=== PATIENT | female | born 1990 | race Caucasian/White ===

== ENCOUNTER → 2022-03-01 | Emergency (ER) | payer OTHER ==
[2022-03-01 17:55] VITALS: RESP 18; BMI 25.7
[2022-03-01 19:22] LABS: BASO % 0.3 % (0-2.0); EOS % 1.3 % (0-4.5); HEMATOCRIT 37.4 % (32.4-45.2); LYMPH % 26.1 % (8-40); MCH 32.7 pg (25.7-33.7); MCHC 34.8 g/dl (32.0-36.0); MEAN PLT VOLUME 8.1 fl (7.5-11.1); MONO % 8.9 % (3.8-10.2); NEUT % 63.4 % (42.8-82.8); PLATELET COUNT 281 10^3/uL (134-434); RBC 3.98 M/mm3 (3.60-5.2); RDW 13.9 % (11.6-15.6); WHITE BLOOD COUNT 10.4 K/mm3 (4.0-10.0)
[2022-03-01 19:44] LABS: CALCIUM 9.2 mg/dL (8.5-10.1)
[2022-03-01 19:45] LABS: BLOOD UREA NITROGEN 8.3 mg/dL (7-18)
[2022-03-01 19:50] LABS: BILIRUBIN,TOTAL 0.4 mg/dL (0.2-1); TOT PROT 6.7 g/dl (6.4-8.2)
[2022-03-01 20:23] LABS: ERYTHROCYTE SEDIMENTATION RATE 28 mm/hr (0-20)
[2022-03-01 21:57] LABS: PH,URINE 6.5 (5.0-8.0); URINE APPEARANCE CLEAR; URINE BILIRUBIN NEGATIVE (NEGATIVE); URINE COLOR YELLOW; URINE GLUCOSE (UA) NEGATIVE (NEGATIVE); URINE KETONE NEGATIVE (NEGATIVE); URINE LEUK ESTERASE NEGATIVE (NEGATIVE); URINE NITRITE NEGATIVE (NEGATIVE); URINE PROTEIN NEGATIVE (NEGATIVE); URINE UROBILINOGEN 0.2 mg/dL (0.2-1.0)
[2022-03-01 23:58] VITALS: BP 106/69
[2022-03-02 03:36] VITALS: PULSE 78; TEMP 97.8
== END | disposition short-term general hospital (02) ==
LOC: JER 16:49
DX: O26.892 Other specified pregnancy related conditions, second trimester (principal); R10.31 Right lower quadrant pain; Z3A.19 19 weeks gestation of pregnancy
CPT/HCPCS: 36415; 76705-TC; 76815-TC; 76856-TC; 80053; 81003; 84702; 85025; 85651; 86140; 87086; 99285-25; C9803-CS; U0003; U0005

== ENCOUNTER 2022-08-12 14:03 | Emergency (ER) | payer OTHER ==
[2022-08-12 14:29] VITALS: BP 111/69; PULSE 97; RESP 17; TEMP 98.5; BMI 28.3
[2022-08-12] MEDS ORDERED: ACETAMINOPHEN 500 MG TABLET (FP) PO ONE (15:27)
[2022-08-12] MEDS ORDERED: ACETAMINOPHEN 500 MG TABLET (FP) ONE (15:36)
[2022-08-12 16:34] LABS: THROAT:GRP A STREP DETECTED (NOTDETECTED)
[2022-08-12] MEDS ORDERED: CEPHALEXIN MONOHYDRATE 500 MG CAPSULE (UD) PO ONE (16:49)
[2022-08-12] MEDS ORDERED: CEPHALEXIN MONOHYDRATE 500 MG CAPSULE (UD) ONE (17:11)
== END 2022-08-12 17:51 | disposition home or self-care (01) ==
LOC: JERFT 14:03
DX: R07.0 Pain in throat (principal); R50.9 Fever, unspecified; J02.0 Streptococcal pharyngitis; Z20.822 Contact with and (suspected) exposure to COVID-19
CPT/HCPCS: 0241U-QW; 87070; 87077; 87651; 99283-25

== ENCOUNTER 2023-03-03 16:33 | Emergency (ER) | payer OTHER ==
[2023-03-03 16:41] VITALS: BP 96/68; PULSE 95; RESP 18; TEMP 98.4; BMI 32.4
== END 2023-03-03 18:04 | disposition home or self-care (01) ==
LOC: JERFT 16:33
DX: R05.9 Cough, unspecified (principal); R50.9 Fever, unspecified; R53.83 Other fatigue; B34.9 Viral infection, unspecified; U07.1 COVID-19
CPT/HCPCS: 0241U-QW; 99283-25

== ENCOUNTER 2024-04-07 02:49 | Emergency (ER) | payer OTHER ==
[2024-04-07 02:53] VITALS: RESP 18; TEMP 98; BMI 28.3
[2024-04-07] MEDS ORDERED: FAMOTIDINE 20 MG TABLET ONE (03:13)
[2024-04-07] MEDS ORDERED: diphenhydrAMINE HCL 25 MG CAPSULE (FP) PO ONE (03:13)
[2024-04-07] MEDS: diphenhydrAMINE HCL 25 MG CAPSULE (FP) PO ONE (03:17)
[2024-04-07] MEDS: FAMOTIDINE 20 MG TABLET PO ONE (03:17)
[2024-04-07 03:41] VITALS: BP 110/67; PULSE 70
[2024-04-07] MEDS ORDERED: DEXAMETHASONE SOD PHOSPHATE 10 MG/1 ML VIAL ONE (03:51)
[2024-04-07] MEDS: DEXAMETHASONE LIQUID 0.5 MG/5 ML PO ONE (04:06)
== END 2024-04-07 05:25 | disposition home or self-care (01) ==
LOC: JER 02:49
DX: L29.9 Pruritus, unspecified (principal); T78.1XXA Other adverse food reactions, not elsewhere classified, initial encounter; Z91.018 Allergy to other foods
CPT/HCPCS: 99283-25

== ENCOUNTER 2024-07-12 18:45 | Emergency (ER) | payer OTHER ==
[2024-07-12 18:59] VITALS: BP 109/74; PULSE 66; RESP 16; TEMP 99.5; BMI 34.0
[2024-07-12] MEDS ORDERED: DEXAMETHASONE SOD PHOSPHATE 10 MG/1 ML VIAL ONE (19:52)
[2024-07-12] MEDS: DEXAMETHASONE SOD PHOSPHATE 10 MG/1 ML VIAL PO ONE (19:56)
== END 2024-07-12 20:04 | disposition home or self-care (01) ==
LOC: JER 18:45 → JERFT 18:45
DX: J02.9 Acute pharyngitis, unspecified (principal); R51.9 Headache, unspecified
CPT/HCPCS: 87651; 99283-25; J1100